=== PATIENT | male | born 1930 | race Caucasian/White ===

== ENCOUNTER → 2021-01-19 | Outpatient (CLI) | payer MEDICARE, BC ==
--- NOTE | 2021-01-19 15:31 | KCIC ---
XR CHEST 2V History: Hypoxia, shortness of air, wheezing. Comparison: None. Technique: PA and lateral chest radiographs. Findings: The lungs are hyperinflated with widening of the AP chest diameter. Diffuse heterogeneous reticular o pacities likely represent chronic fibrosis and scarring. No pleural effusion or pneumothorax. Obscure d cardiomediastinal silhouette appears normal in size. Pulmonary vasculature are within normal limits . Calcification of the abdominal aorta. Degenerative changes of the spine. Impression: 1. Hyperinflation with diffuse heterogeneous reticular opacities likely representing chronic fibrosi s and scarring. Superimposed infection cannot be excluded. Electronically signed by: Catrachito Vasquez MD (01/19/2021 3:29 PM) [id number]
== END ==
LOC: KCIC 14:51
PROVIDERS: ATTEND Internal Medicine
DX: J98.11 Atelectasis (principal); I70.0 Atherosclerosis of aorta; M47.819 Spondylosis without myelopathy or radiculopathy, site unspecified; R06.02 Shortness of breath; R09.02 Hypoxemia; R06.2 Wheezing
CPT/HCPCS: 71046